=== PATIENT | male | born 1990 | race Hispanic/Latino ===

== ENCOUNTER 2022-05-22 18:35 | Emergency (ER) | payer OTHER, SELFPAY ==
--- NOTE | ~2022-05-22 | XR_ITS ---
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 COMPARISON: This is a 32-year-old male with leg.. FINDINGS: Normal mineralization. No fracture or dislocation. No lytic or blastic lesion. Joint space s are maintained. No erosion or periosteal change. Soft tissues within normal limits. IMPRESSION: No acute osseous finding in the right tibia or fibula. Reviewed, dictated and finalized at location K.
[2022-05-22 18:43] VITALS: BP 155/72; PULSE 84; RESP 16; TEMP 36.4; O2SAT 94
[2022-05-22 20:43] LABS: Alanine Aminotransferase 26 U/L (6-50); Albumin Level 4.1 g/dL (3.5-5.1); Alkaline Phosphatase 84 U/L (38-126); Anion Gap 13 mmol/L (8-16); Aspartate Amino Transferase 22 U/L (17-59); Bilirubin,Total 0.4 mg/dL (0.2-1.3); Blood Urea Nitrogen 12 mg/dL (9-20); CRP 7.7 mg/dL (<1.0); Carbon Dioxide 29 mmol/L (22-30); Chloride 98 mmol/L (98-107); Estimated CRCL calculation 270 ml/min; Estimated Glomerular Filt Rate > 60; Glucose 113 mg/dL (65-110); Potassium 3.8 mmol/L (3.4-5.0); Sodium 140 mmol/L (137-145)
--- NOTE | 2022-05-22 21:18 | ED.LOWEXIN ---
HPI - Extremity Injury (Lower) General Chief Complaint: Extremity Injury, Lower Stated Complaint: swelling to R. leg Time Seen by Provider: 05/22/22 19:23 Source: patient and RN notes reviewed Mode of arrival: ambulatory Limitations: no limitations History of Present Illness HPI Narrative: This is a 32 year old male with history of morbid obesity and Diabetes Mellitus who presents for evaluation of right posterior lower leg pain. He states he felt like he had pimple to back of his leg Friday. He had develop pain and swelling to the area. HE also has some itching. He denies any history of DVT or PE. He denies fever, chills, nausea, vomiting, chest pain or shortness of breath. Related Data Allergies Allergy/AdvReac Type Severity Reaction Status Date / Time No Known Allergies Allergy Unverified 05/28/13 10:29 Review of Systems Review of Systems: All systems reviewed & are unremarkable except as noted in HPI and below Constitutional: Constitutional: Denies chills, Denies fatigue and Denies fever(s) Cardiovascular: Cardiovascular: Denies chest pain and Denies radiating jaw, neck or arm pain Respiratory: Respiratory: Denies chest congestion, Denies cough and Denies dyspnea Integumentary/Breasts: Skin/Breast: Reports pruritus Neurologic: Denies headache(s) [facility] Past Medical History Medical History (Updated 05/23/22 @ 00:00 by Background Daemon) Diabetes mellitus Sleep apnea in adult Social History Social History Smoking status: Light tobacco smoker Alcohol intake: current Exam Const: General: no acute distress and alert Nutritional Appearance: obese Orientation/consciousness: patient oriented x3 Limitations: no limitations HENMT: Head: normal to inspection Throat: posterior oropharynx normal Neck: Neck: normal visual inspection Chest: Chest palpation & inspection: normal inspection of the chest Resp: Effort & Inspection: normal respiratory effort Auscultation: clear to auscultation bilaterally Cardio: Rate: regular rate Rhythm: regular rhythm Heart sounds: no murmurs GI: GI Palp: Yes Soft to palpation, No Tenderness to palpation present (GI), No Guarding due to palpation present (GI) and No Rigid due to palpation Auscultation: normal bowel sounds Neuro: General: patient oriented x3, moves all extremities and CN's II-XI intact bilaterally Extrem: Other: right posterior lower leg pain with TTP with area of erythema/induration, no abscess. Difficult to determine if significant swelling due to morbid obesity Psych: Mental Status: mental status grossly normal Affect: normal affect Course Reevaluation(s) Reevaluation #1: PAtient will be discharged home with antibiotics for cellulitis. D dimer negative. Date: 05/22/22 Time: 22:54 Vital Signs Vital signs: Vital Signs Temperature 97.6 F 05/22/22 18:43 Pulse Rate 84 05/22/22 18:43 Respiratory Rate 16 05/22/22 18:43 Blood Pressure 155/72 H 05/22/22 18:43 Pulse Oximetry 94 05/22/22 18:43 Oxygen Delivery Room Air 05/22/22 18:43 Temperature 97.6 F 05/22/22 18:43 Pulse Rate 86 05/22/22 23:18 Respiratory Rate 20 05/22/22 23:18 Blood Pressure 156/74 H 05/22/22 23:18 Pulse Oximetry 96 05/22/22 23:18 Oxygen Delivery Room Air 05/22/22 18:43 MDM - Extremity Injury (Lower) Lab Data Attestation: I reviewed the patient's lab results. Result diagrams: 05/22/22 21:51 05/22/22 20:12 Labs: Lab Results 05/22/22 05/22/22 05/22/22 Range/Units 20:12 21:51 21:51 WBC 15.6 H (4.5-10.0) K/mm3 RBC 5.43 (4.6-6.20) M/mm3 Hgb 13.9 L (14.0-18.0) g/dL Hct 45.9 (42.0-52.0) % MCV 84.5 (80-100) fl MCH 25.6 L (26-34) pg MCHC 30.3 L (32-36) g/dl RDW 17.0 H (11.5-14.5) % Plt Count 299 (150-375) k/mm3 MPV 9.8 (7.4-10.4) fl Immature Gran % (Auto) 0.4 (0-0.5) % Neut % (Auto) 72.6 (45.5-73.1) % Lymph % (Auto)
[2022-05-22 21:56] LABS: Basophils Percent Auto 0.3 % (0.2-1.2); Eosinophils Absolute Auto 0.3 K/mm3 (0-0.3); Eosinophils Percent Auto 1.7 % (0-4.4); Hematocrit 45.9 % (42.0-52.0); Hemoglobin 13.9 g/dL (14.0-18.0); Immature Granulocyte Absolute 0.06 K/mm3 (0.00-0.031); Immature Granulocyte Percent A 0.4 % (0-0.5); Lymphocytes Absolute Auto 1.85 K/mm3 (0.9-3.2); Lymphocytes Percent Auto 11.9 % (18.3-44.2); Mean Corpuscular HGB Conc 30.3 g/dl (32-36); Mean Corpuscular Hemoglobin 25.6 pg (26-34); Mean Corpuscular Volume 84.5 fl (80-100); Mean Platelet Volume 9.8 fl (7.4-10.4); Monocytes Percent Auto 13.1 % (2.6-8.5); Neutrophils Absolute Auto 11.3 K/mm3 (1.3-6.7); Neutrophils Percent Auto 72.6 % (45.5-73.1); Platelet Count Result 299 k/mm3 (150-375); Red Blood Count 5.43 M/mm3 (4.6-6.20); White Blood Count 15.6 K/mm3 (4.5-10.0)
[2022-05-22 22:16] LABS: INR 1.1; Prothrombin Time 13.6 Seconds (11.1-14.7)
[2022-05-22 22:17] LABS: Partial Thromboplastin Time 28.3 SECONDS (22.3-36.8)
[2022-05-22] MEDS: CEPHALEXIN 500 MG CAPSULE PO (22:35)
[2022-05-22] MEDS: SULFAMETHOXAZOLE/TRIMETHOPRIM 800/160 MG DS TABLET 1 TAB PO (22:35)
[2022-05-22] MEDS: IBUPROFEN 600 MG TABLET PO (22:35)
[2022-05-22 22:44] LABS: D Dimer 0.42 ug/mL (<0.48)
[2022-05-22 23:18] VITALS: BP 156/74; PULSE 86; RESP 20; O2SAT 96
== END 2022-05-22 23:20 | disposition home or self-care (01) ==
PROVIDERS: Emergency Provider General Practice; PCP Internal Medicine
DX: L03.115 Cellulitis of right lower limb (principal); E11.9 Type 2 diabetes mellitus without complications; E66.01 Morbid (severe) obesity due to excess calories; Z68.45 Body mass index [BMI] 70 or greater, adult; F17.200 Nicotine dependence, unspecified, uncomplicated
CPT/HCPCS: 36415; 73590; 80053; 85025; 85380; 85610; 85730; 86140; 99283; A9270

== ENCOUNTER 2022-10-28 15:51 | Outpatient (CLI) | payer OTHER, SELFPAY ==
--- NOTE | ~2022-10-28 | XR_ITS ---
EXAM: XR lumbar spine 2-3V DATE: 10/28/2022 16:16 HISTORY: LUMBAGO W SCIATICA. EXAM LIMITED DUE TO MORBID OBESITY . COMPARISON: None available. FINDINGS: Exam limited by poor penetration and quantum mottle. 5 nonrib-bearing lumbar-type vertebral bodies. Pedicles intact. Normal vertebral body alignment. Vertebral body heights preserved. Multilev el mild disc space narrowing and marginal osteophytosis. Normal facets and posterior elements. No fra cture or dislocation. IMPRESSION: Mildly limited examination as detailed above. Multilevel mild degenerative disc disease. Reviewed, dictated and finalized at location K. RVISOR DRAPERY HANGING IMPRESSION: Mildly limited examination as detailed above. Multilevel mild degen erative disc disease.
== END 2022-10-28 15:52 | disposition home or self-care (01) ==
LOC: ANHIMG 15:57
PROVIDERS: PCP Physician Assistant; Visit Provider Physician Assistant
DX: M54.40 Lumbago with sciatica, unspecified side (principal); M51.36 Other intervertebral disc degeneration, lumbar region
CPT/HCPCS: 72100